=== PATIENT | female | born 1980 | race African-American/Black ===

== ENCOUNTER 2016-10-25 11:18 | Emergency (ER) | payer SELFPAY ==
[~2016-10-25 11:18] MED LIST: Sodium Chloride 0.9% 1,000 ML BAG ONE
[2016-10-25] MEDS ORDERED: Ketorolac Tromethamine 30 MG/ML VIAL ONE (11:50)
[2016-10-25] MEDS ORDERED: Ondansetron HCl/PF 4 MG/2 ML Vial ONE (11:50)
[2016-10-25] MEDS ORDERED: Diphenoxylate HCl/Atropine Tablet ONE (11:50)
[2016-10-25 12:00] LABS: #Basophils 0.3 thou/uL (0.0-0.2); #Lymphocytes 0.8 thou/uL (1.20-3.40); #Monocytes 1.1 thou/uL (0.11-0.59); #Neutrophils 12.6 thou/uL (1.40-6.50); %Lymphocytes 5.1 % (21.0-51.0); %Monocytes 7.7 % (0.0-10.0); %Neutrophils 85.2 % (42.0-75.0); Hemoglobin 13.4 g/dL (12.0-16.0); Mean Corpuscular HGB CONC 33.8 g/dL (32.0-36.0); Mean Corpuscular Hemoglobin 33.7 pg (27.0-31.0); Mean Corpuscular Volume 99.6 fl (81.0-99.0); Mean Platelet Volume 7.4 fL (7.4-10.4); Platelet Count 274 thou/uL (130-400); RBC Distribution Width 12.6 % (11.5-14.5); Red Blood Cell (RBC) Count 3.96 mill/uL (4.20-5.40); White Blood Cell (WBC) Count 14.8 thou/uL (4.8-10.8)
[2016-10-25 12:13] LABS: CRP (Inflammatory) 12.03 mg/dL (= or < 0.5)
[2016-10-25 12:23] LABS: ALT (SGPT) 13 U/L (0-55); AST (SGOT) 20 U/L (5-34); Albumin 3.9 g/dL (3.5-5.0); Alkaline Phosphatase 68 U/L (40-150); Anion Gap 15 mmol/L (10-20); BUN (Urea Nitrogen) 8 mg/dL (7.0-18.7); Bilirubin, Total 0.7 mg/dL (0.2-1.2); Calc. Creatinine Clearance 0 mL/min (70-130); Carbon Dioxide 19 mmol/L (22-29); Chloride 101 mmol/L (98-107); Estimated GFR-MDRD Greater than 90; Globulin 3.7 g/dL (2.4-3.5); Glucose 101 mg/dL (70-105); Potassium 3.4 mmol/L (3.5-5.1); Protein, Total 7.6 g/dL (6.0-8.3); Sodium 132 mmol/L (136-145)
[2016-10-25 12:25] LABS: BHCG - Serum NEGATIVE (NEGATIVE); Pregs Control Background? CLEAR/WHITE (CLR/WHITE); Pregs Control Bar Appear? YES (CONTROL BAR)
[2016-10-25 12:37] LABS: Thyroid Stimulating Hormone 1.5905 uIU/mL (0.35-4.94)
[2016-10-25 12:43] LABS: Bilirubin Negative (Negative); Blood, Urine Small (Negative); Clarity Clear (Clear); Glucose, Urine (Dipstick) Negative (Negative); Leukocyte Negative (Negative); Nitrite Negative (Negative); Protein, Urine (Dipstick) Negative (Neg-Trace); Urobilinogen 0.2 mg/dL (0.2-1.0); pH, Urine 5.5 (5.0-9.0)
[2016-10-25 13:02] LABS: Bacteria/HPF Rare-Few HPF (None Seen); RBC/HPF 0-3 HPF (0-3); Squamous Epithelial 0-3 HPF (0-3); WBC/HPF 0-3 HPF (0-3)
== END 2016-10-25 13:36 | disposition home or self-care (01) ==
LOC: MADERS 11:18
DX: E86.0 Dehydration (principal); F41.9 Anxiety disorder, unspecified
CPT/HCPCS: 36415; 80053; 81003; 81015; 82150; 83690; 84443; 84703; 85025; 86140; 87086; 96361; 96374; 96375; J1885; J2405; J7050

== ENCOUNTER 2017-05-16 08:33 | Emergency (ER) | payer SELFPAY ==
[2017-05-16] MEDS ORDERED: Ondansetron ODT 4 MG TAB ONE (09:39)
== END 2017-05-16 09:38 | disposition home or self-care (01) ==
LOC: MADERS 08:33
DX: K29.70 Gastritis, unspecified, without bleeding (principal); E05.90 Thyrotoxicosis, unspecified without thyrotoxic crisis or storm; F41.9 Anxiety disorder, unspecified
CPT/HCPCS: 99284; Q0162

== ENCOUNTER 2017-07-13 09:46 | Emergency (ER) | payer SELFPAY ==
[2017-07-13] MEDS ORDERED: Loperamide HCl 2 MG CAP ONE (10:23)
[2017-07-13] MEDS ORDERED: Ondansetron ODT 4 MG TAB ONE (10:23)
[2017-07-13 10:25] LABS: Bilirubin Negative (Negative); Blood, Urine Small (Negative); Clarity Clear (Clear); Glucose, Urine (Dipstick) Negative (Negative); Leukocyte Negative (Negative); Nitrite Negative (Negative); Protein, Urine (Dipstick) Negative (Neg-Trace); pH, Urine 5.5 (5.0-9.0)
[2017-07-13 10:28] LABS: Bacteria/HPF 1+ HPF (None Seen); Sperm/HPF 1+ HPF (None Seen); WBC/HPF 0-3 HPF (0-3)
[2017-07-13] MEDS ORDERED: Triple Antibiotic Oint 1 GM Packet ONE (10:32)
[2017-07-13] MEDS ORDERED: Furosemide 40 MG TAB ONE (10:32)
[2017-07-13] MEDS ORDERED: Mag-Al Plus 1200 MG/1200 MG/120 MG/30 ML UDCUP ONE (10:32)
== END 2017-07-13 11:05 | disposition home or self-care (01) ==
LOC: MADERS 09:46
DX: K52.9 Noninfective gastroenteritis and colitis, unspecified (principal); L73.2 Hidradenitis suppurativa; E05.90 Thyrotoxicosis, unspecified without thyrotoxic crisis or storm; F41.9 Anxiety disorder, unspecified
CPT/HCPCS: 81003; 81015; 99284; Q0162

== ENCOUNTER 2018-01-11 07:03 | Emergency (ER) | payer SELFPAY | END 2018-01-11 08:05 | disposition home or self-care (01) | LOC: MADERS 07:03 | DX: S76.011A Strain of muscle, fascia and tendon of right hip, initial encounter (principal); F41.9 Anxiety disorder, unspecified; E05.90 Thyrotoxicosis, unspecified without thyrotoxic crisis or storm; W22.8XXA Striking against or struck by other objects, initial encounter | CPT/HCPCS: 99283 ==

== ENCOUNTER 2019-06-09 09:39 | Emergency (ER) | payer SELFPAY ==
[2019-06-09] MEDS ORDERED: Bacitracin 1 PK ONE (10:40)
[2019-06-09] MEDS ORDERED: Adacel (T-DAP) 0.5 ML SYRINGE ONE (10:40)
== END 2019-06-09 10:50 | disposition home or self-care (01) ==
LOC: MADERS 09:39
DX: S80.812A Abrasion, left lower leg, initial encounter (principal); E05.90 Thyrotoxicosis, unspecified without thyrotoxic crisis or storm; W26.8XXA Contact with other sharp object(s), not elsewhere classified, initial encounter
CPT/HCPCS: 90471; 90715

== ENCOUNTER 2019-09-29 07:39 | Emergency (ER) | payer SELFPAY | END 2019-09-29 08:27 | disposition home or self-care (01) | LOC: MADERS 07:39 | DX: J02.9 Acute pharyngitis, unspecified (principal); E05.90 Thyrotoxicosis, unspecified without thyrotoxic crisis or storm; F41.9 Anxiety disorder, unspecified | CPT/HCPCS: 87081; 87430; 99283 ==